=== PATIENT | male | born 1975 | race Caucasian/White ===

== ENCOUNTER 2016-10-24 11:04 | Emergency (ER) | payer SELFPAY ==
[~2016-10-24] VITALS: Ht 193 cm; Wt 92.4 kg
[~2016-10-24 11:04] MED LIST: CEPH500C3 PO
[2016-10-24 11:40] VITALS: BP 139/100; PULSE 96; RESP 20; TEMP 92.4; TEMP 98.1; O2SAT 97
[2016-10-24 12:13] VITALS: TEMP 98
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
[2016-10-24] MEDS ORDERED: TETANUS/DIPHTHERIA TOXOID ADULT 0.5 ML VIAL IM ONE (12:15)
[2016-10-24] MEDS ORDERED: ONDANSETRON HCL 4 MG/2 ML VIAL IV PUSH ONE (12:15)
[2016-10-24] MEDS ORDERED: SODIUM CHLOR 0.9% 1000 ML INJ 1,000 ML IV ONE (12:15)
[2016-10-24 12:41] LABS: POTASSIUM 3.9 MEQ/L (3.5-5.1)
[2016-10-24 12:44] LABS: BICARBONATE 25.1 MEQ/L (21.0-32.0)
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
[2016-10-24 13:06] VITALS: BP 117/68; PULSE 91; RESP 16; O2SAT 99
== END 2016-10-24 13:53 | disposition home or self-care (01) ==
LOC: PHED 11:04
DX: F10.120 Alcohol abuse with intoxication, uncomplicated (principal); Y90.8 Blood alcohol level of 240 mg/100 ml or more; S06.0X9A Concussion with loss of consciousness of unspecified duration, initial encounter; X58.XXXA Exposure to other specified factors, initial encounter
CPT/HCPCS: 70450; 80048; 80320; 96361; 96374; 99284; J2405; J7030

== ENCOUNTER 2017-10-18 02:32 | Emergency (ER) | payer SELFPAY ==
[~2017-10-18] VITALS: Ht 193 cm; Wt 105.0 kg
[2017-10-18 02:40] VITALS: BP 154/98; PULSE 79; RESP 18; TEMP 97.5; O2SAT 97
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
--- NOTE | 2017-10-18 03:36 | RADRPT ---
EXAM DATE/TIME: 10/18/2017 03:15 [facility] COMPARISON: CHEST PA & LAT, July 05, 2016, 0:06. INDICATIONS : Chest and rib pain after fall on side. MEDICAL HISTORY : None. SURGICAL HISTORY : None. ENCOUNTER: Initial ACUITY: 2 weeks PAIN SCORE: 4/10 LOCATION: Left lower chest FINDINGS: The lungs are clear without infiltrate, nodule, or mass. There is no appreciable pleural effusion fo r technique. Heart and mediastinum are unremarkable. No definite pneumothorax is seen for technique. CONCLUSION: No acute cardiopulmonary disease. Lucia Weiner MD on October 18, 2017 at 3:34 Board Certified Radiologist. This report was verified electronically.
[2017-10-18] MEDS ORDERED: NAPR500T2 PO (03:44)
[2017-10-18] MEDS ORDERED: TRAM50TA PO (03:44)
[2017-10-18 03:47] VITALS: BP 153/94
== END 2017-10-18 03:55 | disposition home or self-care (01) ==
LOC: PHED 02:32
DX: S20.212A Contusion of left front wall of thorax, initial encounter (principal); R05 Cough; R06.02 Shortness of breath; F41.9 Anxiety disorder, unspecified; F32.9 Major depressive disorder, single episode, unspecified; W19.XXXA Unspecified fall, initial encounter; Y93.44 Activity, trampolining
CPT/HCPCS: 71020; 99283

== ENCOUNTER 2018-08-14 17:23 | Inpatient (IN) ==
[2018-08-14] MEDS ORDERED: Sod Chloride 0.9% Inj 1,000 ML IV.SIG ONE (18:12)
[2018-08-14] MEDS ORDERED: Morphine Inj 4 MG/ML Vial IV.PUSH ONE (18:13)
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
[2018-08-14 18:56] LABS: Chloride 102 meq/L (98-107); Potassium 3.9 meq/L (3.5-5.1); Sodium 138 meq/L (136-145)
[2018-08-14 19:00] LABS: Albumin 4.3 g/dL (3.4-5.0); Anion Gap 8 meq/L (5-15); Blood Urea Nitrogen 6 mg/dL (7-18); Calcium 9.1 mg/dL (8.5-10.1); Glucose,Random 98 mg/dL (74-106)
[2018-08-14 19:01] LABS: Activated Partial Thrombo Time 26.8 sec (24.3-30.1); INR 0.9 Ratio; Prothrombin Time 9.6 sec (9.8-11.6)
[2018-08-14 19:03] LABS: Alanine Aminotransferase 29 U/L (12-78); Aspartate Aminotransferase 19 U/L (15-37); Baso % (Auto) 0.3 % (0.0-2.0); Eos % (Auto) 0.2 % (0.0-4.0); Glomerular Filtration Rate Greater Than 89 mL/min (>89); Hematocrit 40.8 % (39.0-51.0); Hemoglobin 14.4 gm/dL (13.0-17.0); Lymph # (Auto) 0.8 th/mm3 (1.0-4.8); Lymph % (Auto) 8.6 % (9.0-44.0); Mean Corpuscular HGB Conc 35.3 % (32.0-36.0); Mean Corpuscular Volume 90.6 fL (80.0-100.0); Mean Platelet Volume 7.7 fL (7.0-11.0); Mono # (Auto) 0.6 th/mm3 (0.0-0.9); Mono % (Auto) 6.8 % (0.0-8.0); Neut # (Auto) 7.8 th/mm3 (1.8-7.7); Neut % (Auto) 84.1 % (16.0-70.0); Platelet Count 196 th/mm3 (150-450); Red Blood Count 4.51 mil/mm3 (4.50-5.90); Red Cell Distribution Width 12.9 % (11.6-17.2); White Blood Count 9.2 th/mm3 (4.0-11.0)
[2018-08-14 19:05] LABS: Total Protein 8.5 g/dL (6.4-8.2)
[2018-08-14 19:06] LABS: Alkaline Phosphatase 80 U/L (45-117)
[2018-08-14 19:28] LABS: Platelet Estimate Normal (Normal); Platelet Morphology Normal (Normal); RBC Morphology Normal (Normal)
--- NOTE | 2018-08-14 19:47 | CT ---
EXAM DATE: 08/14/2018 7:11 PM EDT AGE/SEX: 42 years / Male INDICATIONS: Left sided neck swelling. Recent mandible fracture two days ago. CLINICAL DATA: This is the patient's initial encounter. Patient reports that signs and symptoms have been present for 2 days and indicates a pain score of 8/10. MEDICAL/SURGICAL HISTORY: None. None. RADIATION DOSE: 11.63 CTDI (mGy) COMPARISON: [facility], CT FACIAL BONES WO CON, 08/12/2018. . TECHNIQUE: Helical acquisition was performed using a multirow detector CT scanner during the adminis tration of 75 ml Omnipaque 350 (iohexol) nonionic water-soluble contrast as a single exam dose. Usi ng automated exposure control and adjustment of the mA and/or kV according to patient size, radiation dose was kept as low as reasonably achievable to obtain optimal diagnostic quality images. DICOM fo rmat image data is available electronically for review and comparison. FINDINGS: Nasopharynx: The nasopharyngeal airway has a normal configuration. No mucosal thickening or mass is seen. Oropharynx: The intrinsic muscles of the tongue are symmetric. The tonsillar pillars are intact. T he prevertebral soft tissues are not thickened. Retained secretions are seen opacifying the left piri form sinus. Larynx: The supraglottic, glottic, and infraglottic structures are intact. Parapharyngeal: The parapharyngeal space is intact. Salivary Glands: The parotid and submandibular glands are intact. Lymph Nodes: No enlarged or necrotic-appearing nodes. Thyroid: Homogeneous enhancement without evidence of nodule. Bones: Nondisplaced mandibular fractures are seen just to the right of midline near the apex and inv olving the left body. These are unchanged... There is edema involving the masseter muscle and surrounding subcutaneous fat on the left. Small wilmar unt of air is seen associated with the left mandibular fracture. These findings are stable. CONCLUSION: 1. Stable mandibular fractures with associated soft tissue swelling as detailed above. No acute change. Electronically signed by: Eduard Feldman MD 08/14/2018 7:45 PM EDT
[2018-08-14] MEDS ORDERED: Dexamethasone Inj 20 MG/5 ML Vial IV.PUSH ONE (19:50)
[2018-08-14] MEDS ORDERED: Bisacodyl 10 MG Supp RECTAL PRN (21:13)
[2018-08-14] MEDS: Sod Chloride 0.9% Inj 1,000 ML IV.CONT SCH (22:01)
[2018-08-14] MEDS: Morphine Inj 4 MG/ML Vial IV.PUSH PRN (23:07)
[2018-08-15] MEDS: Morphine Inj 4 MG/ML Vial IV.PUSH PRN ×4 (02:54→20:08)
--- NOTE | 2018-08-15 02:57 | P.HPIM ---
History of Present Illness Service: [facility] Primary Care Physician: UNKNOWN Chief Complaint: Jaw pain and swelling History of Present Illness: 42-year-old male with no medical history presented to the emergency department for evaluation of left-sided facial and neck swelling. Patient was seen here 2 days ago in the emergency department and was diagnosed with a mandible fracture in 2 places. He was told to follow up with the facial surgeon in his office but due to insurance authorization he could not get an appointment. He returns today with increased swelling of his left mouth and neck and worsening pain. Patient complains of increased nausea difficulty breathing due to secretions. He denies any chest pain, fevers or chills. Inpatient Certification: I certify that the inpatient services were ordered in accordance with Medicare regulations governing the order. This includes certification that hospital inpatient services are reasonable and necessary and in the case of services not specified as inpatient-only under 42 CFR 419.22(n), that they are appropriately provided as inpatient services in accordance to with the 2-midnight benchmark under 43 CFR 412.3(e) Estimated Total Length of Stay (Days): 2 Plans for Post Hospital Care: Not yet determined Review of Systems All other systems reviewed negative except as stated in [facility]PI [facility] - History History Provided By: Patient - Medical History Medical History: Medical History (Last Reviewed 08/15/18 @ 04:36 by SARAI Guajardo) Patient denies medical problems - Surgical History Surgical History: Surgical History (Last Reviewed 08/15/18 @ 04:36 by SARAI Guajardo) No history of previous surgery - Family History Family History: Family History (Last Updated 08/15/18 @ 04:36 by SARAI Guajardo) Father Lymphoma - Social History I have reviewed the patient's Social History: Yes - Tobacco History Second Hand Smoke Exposure: No Tobacco Use In Past 30 Days: No Smoking Status: Former smoker Tobacco Type: Cigars - Alcohol History How Often Do You Have a Drink Containing Alcohol: Never - Substance Use History Substance History: No History of Abuse - Travel History Recent Travel in the [place] Within the Last 8 Weeks: No Recent Travel Out of the Country Within the Last 8 Weeks: No - Immunization History Tetanus Immunization: <5 Years Medications and Allergies Active Medications: Active Medications Al Hydroxide/Mg Hydroxide (Milk Of Magnesia Liq) 30 ml PO Q12H PRN PRN Reason: Mild Constipation Bisacodyl (Dulcolax Supp) 10 mg RECTAL DAILY PRN PRN Reason: SEVERE CONSITIPATION Dexamethasone Sodium Phosphate (Decadron Inj) 4 mg IV.PUSH Q8H [facility] Sodium Chloride (Ns Inj) 1,000 mls @ 100 mls/hr IV.CONT .Q10H [facility] Last Infusion: 08/14/18 23:00 Dose: 100 mls/hr Lactulose (Lactulose Liq) 30 ml PO DAILY PRN PRN Reason: SEVERE CONSITIPATION Morphine Sulfate (Morphine Inj) 4 mg IV.PUSH Q4H PRN PRN Reason: pain 6-10 Last Admin: 08/14/18 23:07 Dose: 4 mg Ondansetron HCl (Zofran Inj) 4 mg IV.PUSH Q6H PRN PRN Reason: NAUSEA OR VOMITING Senna/Docusate Sodium (Diana-Colace) 1 tab PO BID [facility] Sennosides (Senokot) 17.2 mg PO Q12H PRN PRN Reason: Moderate Constipation Allergies Allergy/AdvReac Type Severity Reaction Status Date / Time No Known Allergies Allergy Verified 08/14/18 17:25 Exam Vital signs: Vital Signs 08/14/18 17:25 08/14/18 17:42 08/14/18 18:54 Temperature 98.9 F Pulse Rate 77 77 86 Respiratory Rate 16 20 Blood Pressure 153/93 H 153/99 H Pulse Oximetry 100 99 99 08/14/18 20:18 08/14/18 22:00 08/15/18 02:03 Temperature Pulse Rate 83 84 84 Respiratory Rate 18 20 18 Blood Pressure 161/97 H 132/77 134/78 Pulse Oximetry 99 96 Intake & Output 08/14/18 08/14/18 08/15/18 06:59 18:59 06:59 Intake Total 1000 / 1000 Balance 1000 / 1000 Weight 91.1 kg Intake: IV 1000 / 1000 NS Inj 1,000 ML @ Wide Open IV. 1000 / 1000 SIG BOLUS ONE Rx#:[id number] Narrative: GENERAL: This is a well-nourished, well-developed patient, in no apparent distress. HEENT: Left mandible and neck swelling CARDIOVASCULAR: Regular rate and rhythm without murmurs, gallops, or rubs. RESPIRATORY: Clear to auscultation. Breath sounds equal bilaterally. No wheezes , rales, or rhonchi. GASTROINTESTINAL: Abdomen soft, non-tender, nondistended. Normal active bowel sounds MUSCULOSKELETAL: Extremities without clubbing, cyanosis, or edema. NEURO: Alert & Oriented x4 to person, place, time, situation. Moves all ext x4 Results - Labs CBC & Chem 7: 08/14/18 18:36 08/14/18 18:36 Labs: Short CBC 08/14/18 Range/Units 18:36 WBC 9.2 (4.0-11.0) th/mm3 Hgb 14.4 (13.0-17.0) gm/dL Hct 40.8 (39.0-51.0) % Plt Count 196 (150-450) th/mm3 BMP 08/14/18 18:36 Sodium 138 Potassium 3.9 Chloride 102 Carbon Dioxide 28.0 BUN 6 L Creatinine 0.89 Calcium 9.1 Liver Function 08/14/18 Range/Units 18:36 Total Bilirubin 0.5 (0.2-1.0) mg/dL AST 19 (15-37) U/L ALT 29 (12-78) U/L Alkaline Phosphatase 80 (45-117) U/L Albumin 4.3 (3.4-5.0) g/dL - Imaging Impressions Soft Tissue Neck CT 08/14/18 18:12 CONCLUSION: 1. Stable mandibular fractures with associated soft tissue swelling as detailed above. No acute change. Caprini VTE Risk Assessment Caprini VTE Risk Assessment: No/Low Risk (score <= 1) Caprini Risk Assessment Model: Point Value = 1 Point Value = 2 Point Value = 3 Point Value = 5 Age 41-60 Minor surgery BMI > 25 kg/m2 Swollen legs Varicose veins or History of unexplained or recurrent spontaneous Oral contraceptives or hormone replacement Sepsis (< 1 month) Serious lung disease, including pneumonia (< 1 month) Abnormal pulmonary function Acute myocardial infarction Congestive heart failure (< 1 month) History of inflammatory bowel disease Medical patient at bed rest Age 61-74 Arthroscopic surgery Major open surgery (> 45 min) Laparoscopic surgery (> 45 min) Malignancy Confined to bed (> 72 hours) Immobilizing plaster cast Central venous access Age >= 75 History of VTE Family history of VTE Factor V Leiden Prothrombin [id number] Lupus anticoagulant Anticardiolipin antibodies Elevated serum homocysteine Heparin-induced thrombocytopenia Other congenital or acquired thrombophilia Stroke (< 1 month) Elective arthroplasty Hip, pelvis, or leg fracture Acute spinal cord injury (< 1 month) Prophylaxis Regimen: Total Risk Factor Score Risk Level Prophylaxis Regimen 0-1 Low Early ambulation 2 Moderate Order ONE of the following: *Sequential Compression Device (SCD) *Heparin 5000 units SQ BID 3-4 Higher Order ONE of the following medications: *Heparin 5000 units SQ TID *Enoxaparin/Lovenox 40 mg SQ daily (WT < 150 kg, CrCl > 30 mL/min) *Enoxaparin/Lovenox 30 mg SQ daily (WT < 150 kg, CrCl > 10-29 mL/min) *Enoxaparin/Lovenox 30 mg SQ BID (WT < 150 kg, CrCl > 30 mL/min) AND/OR *Sequential Compression Device (SCD) 5 or more Highest Order ONE of the following medications: *Heparin 5000 units SQ TID (Preferred with Epidurals) *Enoxaparin/Lovenox 40 mg SQ daily (WT < 150 kg, CrCl > 30 mL/min) *Enoxaparin/Lovenox 30 mg SQ daily (WT < 150 kg, CrCl > 10-29 mL/min) *Enoxaparin/Lovenox 30 mg SQ BID (WT < 150 kg, CrCl > 30 mL/min) AND *Sequential Compression Device (SCD) Assessment and Plan - Plan Mandible fracture -NPO, IVF -Consult maxillofacial surgery for evaluation -Pain management with IV morphine -Decadron IV DVT prophylaxis: SCDs Discussed Condition With: Patient and RN
[2018-08-15 07:07] LABS: Baso % (Auto) 0.1 % (0.0-2.0); Hematocrit 38.1 % (39.0-51.0); Lymph # (Auto) 0.5 th/mm3 (1.0-4.8); Lymph % (Auto) 4.7 % (9.0-44.0); Mean Corpuscular HGB Conc 34.1 % (32.0-36.0); Mean Corpuscular Hemoglobin 31.9 pg (27.0-34.0); Mean Corpuscular Volume 93.7 fL (80.0-100.0); Mono # (Auto) 0.3 th/mm3 (0.0-0.9); Mono % (Auto) 3.2 % (0.0-8.0); Neut # (Auto) 8.9 th/mm3 (1.8-7.7); Platelet Count 167 th/mm3 (150-450); Red Blood Count 4.07 mil/mm3 (4.50-5.90); Red Cell Distribution Width 13.1 % (11.6-17.2); White Blood Count 9.6 th/mm3 (4.0-11.0)
[2018-08-15 07:35] LABS: Anion Gap 7 meq/L (5-15); Blood Urea Nitrogen 6 mg/dL (7-18); Calcium 8.5 mg/dL (8.5-10.1); Carbon Dioxide 25.8 meq/L (21.0-32.0); Chloride 103 meq/L (98-107); Glomerular Filtration Rate Greater Than 89 mL/min (>89); Glucose,Random 129 mg/dL (74-106); Potassium 4.2 meq/L (3.5-5.1); Sodium 136 meq/L (136-145)
[2018-08-15] MEDS: Sod Chloride 0.9% Inj 1,000 ML IV.CONT SCH ×2 (10:25→19:55)
[2018-08-15] MEDS: Senna/Docusate Sodium 8.6/50 MG Tablet PO SCH ×2 (10:26→21:00)
--- NOTE | 2018-08-15 11:19 | P.PN ---
Subjective Interval history: This is a pleasant 42 y/o male who came to ER with left sided facial and neck swelling, Patient was seen here 2 days ago in the emergency department and was diagnosed with a mandible fracture in 2 places. He was told to follow up with the facial surgeon in his office but due to insurance authorization he could not get an appointment. He returns today with increased swelling of his left mouth and neck and worsening pain. Patient complains of increased nausea difficulty breathing due to secretions. He denies any chest pain, fevers or chills. 08/15: Seen in his bedroom he has no nausea, vomit or diarrhea, will have procedure for 08/17/18 started full liquid diet and will be NPO tomorrow midnight. Physical Exam Vital signs: Vital Signs 08/14/18 17:25 08/14/18 17:42 08/14/18 18:54 Temperature 98.9 F Pulse Rate 77 77 86 Respiratory Rate 16 20 Blood Pressure 153/93 H 153/99 H Pulse Oximetry 100 99 99 08/14/18 20:18 08/14/18 22:00 08/15/18 02:03 Temperature Pulse Rate 83 84 84 Respiratory Rate 18 20 18 Blood Pressure 161/97 H 132/77 134/78 Pulse Oximetry 99 96 08/15/18 02:30 08/15/18 03:30 08/15/18 05:00 Temperature 98.1 F Pulse Rate 66 Respiratory Rate 18 Blood Pressure 123/66 Pulse Oximetry 98 98 97 08/15/18 08:00 Temperature 98.3 F Pulse Rate 92 H Respiratory Rate 17 Blood Pressure 142/78 H Pulse Oximetry 96 Intake & Output 08/14/18 08/15/18 08/15/18 18:59 06:59 18:59 Intake Total 1000 / 1000 1000 / 1000 Balance 1000 / 1000 1000 / 1000 Weight 91.1 kg 91 kg Intake: IV 1000 / 1000 1000 / 1000 NS Inj 1,000 ML @ 100 mls/hr IV 1000 / 1000 .CONT .Q10H PER Rx#:[id number] NS Inj 1,000 ML @ Wide Open IV. 1000 / 1000 SIG BOLUS ONE Rx#:[id number] Oral 0 / 0 Other: # Voids 1 # Bowel Movements 0 Weight On Admission 91 kg Narrative: GENERAL: This is a well-nourished, well-developed patient, in no apparent distress. HEENT: Left mandible and neck swelling CARDIOVASCULAR: Regular rate and rhythm without murmurs, gallops, or rubs. RESPIRATORY: Clear to auscultation. Breath sounds equal bilaterally. No wheezes , rales, or rhonchi. GASTROINTESTINAL: Abdomen soft, non-tender, nondistended. Normal active bowel sounds MUSCULOSKELETAL: Extremities without clubbing, cyanosis, or edema. NEURO: Alert & Oriented x4 to person, place, time, situation. Moves all ext x4 Results - Labs CBC & Chem 7: 08/15/18 05:27 08/15/18 05:27 Laboratory Results - last 24 hr 08/14/18 08/14/18 08/14/18 18:36 18:36 18:36 CBC w Diff Slide review pending WBC 9.2 RBC 4.51 Hgb 14.4 Hct 40.8 MCV 90.6 MCH 32.0 MCHC 35.3 RDW 12.9 Plt Count 196 MPV 7.7 Neut % (Auto) 84.1 H Lymph % (Auto) 8.6 L [place] % (Auto) 6.8 Eos % (Auto) 0.2 Baso % (Auto) 0.3 Neut # (Auto) 7.8 H Lymph # (Auto) 0.8 L [place] # (Auto) 0.6 Eos # (Auto) 0.0 Baso # (Auto) 0.0 WBC Differential . Diff Scan Auto diff confirmed Differential Comment . Platelet Estimate Normal Platelet Morphology Normal RBC Morphology Normal PT 9.6 L INR 0.9 APTT 26.8 Sodium 138 Potassium 3.9 Chloride 102 Carbon Dioxide 28.0 Anion Gap 8 BUN 6 L Creatinine 0.89 Estimated GFR Greater than 89 Random Glucose 98 Lactic Acid Calcium 9.1 Total Bilirubin 0.5 AST 19 ALT 29 Alkaline Phosphatase 80 Total Protein 8.5 H Albumin 4.3 08/14/18 08/15/18 08/15/18 18:36 05:27 05:27 CBC w Diff WBC 9.6 RBC 4.07 L Hgb 13.0 Hct 38.1 L MCV 93.7 MCH 31.9 MCHC 34.1 RDW 13.1 Plt Count 167 MPV 8.0 Neut % (Auto) 92.0 H Lymph % (Auto) 4.7 L [place] % (Auto) 3.2 Eos % (Auto) 0.0 Baso % (Auto) 0.1 Neut # (Auto) 8.9 H Lymph # (Auto) 0.5 L [place] # (Auto) 0.3 Eos # (Auto) 0.0 Baso # (Auto) 0.0 WBC Differential . Diff Scan Differential Comment Auto diff final Platelet Estimate Platelet Morphology RBC Morphology PT INR APTT Sodium 136 Potassium 4.2 Chloride 103 Carbon Dioxide 25.8 Anion Gap 7 BUN 6 L Creatinine 0.88 Estimated GFR Greater than 89 Random Glucose 129 H Lactic Acid 1.2 Calcium 8.5 Total Bilirubin AST ALT Alkaline Phosphatase Total Protein Albumin - Imaging Impressions Soft Tissue Neck CT 08/14/18 18:12 CONCLUSION: 1. Stable mandibular fractures with associated soft tissue swelling as detailed above. No acute change. - Procedures None Assessment and Plan - Plan Mandible fracture -NPO, IVF -Consult maxillofacial surgery performed appreciated procedure scheduled for -Pain management with IV morphine -Decadron IV DVT prophylaxis: SCDs Code Status: Full code. Discussed Condition With: patient and nurse Miss Montague Discharge Planning: Once cleared by specialist.
--- NOTE | 2018-08-15 19:57 | P.CON ---
History of Present Illness Service: Plastic surgery Consult date: 08/15/18 Primary Care Provider: UNKNOWN Chief Complaint: Mandibular fracture History of Present Illness: History obtained from patient and chart 42-year-old male with no medical history presented to the emergency department for evaluation of left-sided facial and neck swelling. Patient was seen here 2 days ago in the emergency department and was diagnosed with a mandible fracture. He was told to follow up with the facial surgeon in his office but due to insurance authorization he could not get an appointment. He returns today with increased swelling of his left mouth and neck and worsening pain. Patient complains of increased nausea difficulty breathing due to secretions. He denies any chest pain, fevers or chills. Patient endorses bilateral jaw pain. He also endorses left facial numbness and tingling since the incident. Review of Systems All other systems reviewed negative except as stated in HPI [facility] - History History Provided By: Patient - Medical History Medical History: Medical History (Last Reviewed 08/15/18 @ 04:36 by SARAI Guajardo) Patient denies medical problems - Surgical History Surgical History: Surgical History (Last Reviewed 08/15/18 @ 04:36 by SARAI Guajardo) No history of previous surgery - Family History Family History: Family History (Last Updated 08/15/18 @ 04:36 by SARAI Guajardo) Father Lymphoma - Social History I have reviewed the patient's Social History: Yes - Tobacco History Second Hand Smoke Exposure: No Tobacco Use In Past 30 Days: No Smoking Status: Former smoker Tobacco Type: Cigars - Alcohol History How Often Do You Have a Drink Containing Alcohol: Never - Substance Use History Substance History: No History of Abuse - Travel History Recent Travel in the [place] Within the Last 8 Weeks: No Recent Travel Out of the Country Within the Last 8 Weeks: No - Immunization History Tetanus Immunization: <5 Years Medication list reviewed [facility] - History History Provided By: Patient - Medical History Medical History: Medical History (Last Reviewed 08/15/18 @ 04:36 by SARAI Guajardo) Patient denies medical problems - Surgical History Surgical History: Surgical History (Last Reviewed 08/15/18 @ 04:36 by SARAI Guajarod) No history of previous surgery - Family History Family History: Family History (Last Updated 08/15/18 @ 04:36 by SARAI Guajardo) Father Lymphoma - Tobacco History Second Hand Smoke Exposure: Yes Tobacco Use In Past 30 Days: No Smoking Status: Former smoker Tobacco Type: Cigarettes - Alcohol History How Often Do You Have a Drink Containing Alcohol: Never - Substance Use History Substance History: No History of Abuse - Travel History Recent Travel in the [facility] Within the Last 8 Weeks: No Recent Travel Out of the Country Within the Last 8 Weeks: No - Immunization History Tetanus Immunization: <5 Years Hx Influenza Vaccine This Season: No Medications and Allergies Active Medications: Active Medications Al Hydroxide/Mg Hydroxide (Milk Of Magnesia Liq) 30 ml PO Q12H PRN PRN Reason: Mild Constipation Bisacodyl (Dulcolax Supp) 10 mg RECTAL DAILY PRN PRN Reason: SEVERE CONSITIPATION Dexamethasone Sodium Phosphate (Decadron Inj) 4 mg IV.PUSH Q8H [facility] Last Admin: 08/15/18 11:01 Dose: 4 mg Sodium Chloride (Ns Inj) 1,000 mls @ 100 mls/hr IV.CONT .Q10H [facility] Last Admin: 08/15/18 10:25 Dose: 100 mls/hr Lactulose (Lactulose Liq) 30 ml PO DAILY PRN PRN Reason: SEVERE CONSITIPATION Morphine Sulfate (Morphine Inj) 4 mg IV.PUSH Q4H PRN PRN Reason: pain 6-10 Last Admin: 08/15/18 15:14 Dose: 4 mg Ondansetron HCl (Zofran Inj) 4 mg IV.PUSH Q6H PRN PRN Reason: NAUSEA OR VOMITING Last Admin: 08/15/18 10:57 Dose: 4 mg Senna/Docusate Sodium (Diana-Colace) 1 tab PO BID [facility] Last Admin: 08/15/18 10:26 Dose: 1 tab Sennosides (Senokot) 17.2 mg PO Q12H PRN PRN Reason: Moderate Constipation Allergies Allergy/AdvReac Type Severity Reaction Status Date / Time No Known Allergies Allergy Verified 08/14/18 17:25 Physical Exam Vital signs: Vital Signs 08/14/18 20:18 08/14/18 22:00 08/15/18 02:03 Temperature Pulse Rate 83 84 84 Respiratory Rate 18 20 18 Blood Pressure 161/97 H 132/77 134/78 Pulse Oximetry 99 96 08/15/18 02:30 08/15/18 03:30 08/15/18 05:00 Temperature 98.1 F Pulse Rate 66 Respiratory Rate 18 Blood Pressure 123/66 Pulse Oximetry 98 98 97 08/15/18 08:00 08/15/18 12:00 08/15/18 16:00 Temperature 98.3 F 98.0 F 98.2 F Pulse Rate 92 H 60 65 Respiratory Rate 17 17 17 Blood Pressure 142/78 H 126/59 L 146/81 H Pulse Oximetry 96 97 97 Intake & Output 08/15/18 08/15/18 08/16/18 06:59 18:59 06:59 Intake Total 1000 / 1000 1480 / 1480 Output Total 650 / 650 Balance 1000 / 1000 830 / 830 Weight 91 kg Intake: IV 1000 / 1000 1000 / 1000 NS Inj 1,000 ML @ 100 mls/hr IV 1000 / 1000 .CONT .Q10H PER Rx#:[id number] NS Inj 1,000 ML @ Wide Open IV. 1000 / 1000 SIG BOLUS ONE Rx#:[id number] Oral 0 / 0 480 / 480 Output: Urine 650 / 650 Other: # Voids 1 Date of Last Bowel Movement 08/14/18 # Bowel Movements 0 0 Weight On Admission 91 kg Narrative: No apparent anxiety moist mucous membranes PERRLA skin without rash respirations nonlabored moves all 4 extremities to command digits warm well perfused Cranial nerves intact by exam Left V1 to V3 numb subjectively Bilateral mandibular pain Moderate edema Assessment and Plan - Assessment (1) Mandible fracture Code(s): S02.609A - Fracture of mandible, unspecified, initial encounter for closed fracture Status: Acute - Plan 42-year-old male who presents with left ankle and right mandibular body fractures Risk benefits alternative treatments discussed All questions answered and the patient expressed understanding Patient elected to assume the risks of maxillomandibular fixation of mandibular fractures Informed consent obtained Patient currently scheduled for this Monday (1) Mandible fracture Qualifiers: Encounter type: initial encounter Fracture type: closed Mandible location: other site Qualified Code(s): S02.69XA - Fracture of mandible of other specified site, initial encounter for closed fracture
[2018-08-16] MEDS: Morphine Inj 4 MG/ML Vial IV.PUSH PRN ×6 (00:15→22:15)
[2018-08-16] MEDS: Sod Chloride 0.9% Inj 1,000 ML IV.CONT SCH ×2 (08:34→13:10)
[2018-08-16] MEDS: Senna/Docusate Sodium 8.6/50 MG Tablet PO SCH ×2 (08:40→21:59)
--- NOTE | 2018-08-16 14:57 | P.PN ---
Subjective Interval history: Follow-up for left mandibular fracture. Patient is currently resting in bed. Complains of pain and not able to talk clearly. He is a scheduled for surgery tomorrow 08/17/2018. Physical Exam Vital signs: Vital Signs 08/15/18 16:00 08/15/18 20:39 08/16/18 00:00 Temperature 98.2 F 98.2 F 98.2 F Pulse Rate 65 62 68 Respiratory Rate 17 17 18 Blood Pressure 146/81 H 143/74 H 133/73 Pulse Oximetry 97 96 94 L 08/16/18 05:00 08/16/18 08:00 08/16/18 12:00 Temperature 98.1 F 98.5 F 98.4 F Pulse Rate 60 60 80 Respiratory Rate 18 18 20 Blood Pressure 129/74 137/91 H 137/82 Pulse Oximetry 95 97 96 Intake & Output 08/15/18 08/16/18 08/16/18 18:59 06:59 18:59 Intake Total 1480 / 1480 480 / 480 1000 / 1000 Output Total 650 / 650 Balance 830 / 830 480 / 480 1000 / 1000 Weight 91 kg Intake: IV 1000 / 1000 1000 / 1000 NS Inj 1,000 ML @ 100 mls/hr IV 1000 / 1000 1000 / 1000 .CONT .Q10H PER Rx#:[id number] Oral 480 / 480 480 / 480 Output: Urine 650 / 650 Other: # Voids 3 Date of Last Bowel Movement 08/14/18 # Bowel Movements 0 0 Narrative: GENERAL: Alert, NAD. SKIN: Warm and dry. HEAD: Normocephalic. Left mandibular area swelling and pain. EYES: No scleral icterus. No injection or drainage. NECK: Supple, trachea midline. No JVD or lymphadenopathy. CARDIOVASCULAR: Regular rate and rhythm without murmurs, gallops, or rubs. RESPIRATORY: Breath sounds equal bilaterally. No accessory muscle use. GASTROINTESTINAL: Abdomen soft, non-tender, nondistended. MUSCULOSKELETAL: No cyanosis, or edema. BACK: Nontender without obvious deformity. No CVA tenderness. Results - Labs CBC & Chem 7: 08/15/18 05:27 08/15/18 05:27 - Imaging Soft Tissue Neck CT 08/14/18 18:12 CONCLUSION: 1. Stable mandibular fractures with associated soft tissue swelling as detailed above. No acute change. - Procedures None Assessment and Plan - Plan Mr. Clinton is a 42-year-old male with no medical history presented to the emergency department for evaluation of left-sided facial and neck swelling. He was diagnosed with left mandibular fracture two days prior to this admission. Plastic surgery consulted. Left mandibular fracture Neck swelling - Plastic surgery following. Surgery on 08/17/2018. - Patient is on Decadron 4mg IV q8hrs due to neck swelling. - Morphine IV for pain. Full code. Ambulation.
[2018-08-17] MEDS: Morphine Inj 4 MG/ML Vial IV.PUSH PRN ×4 (02:17→19:49)
[2018-08-17] MEDS: Sod Chloride 0.9% Inj 1,000 ML IV.CONT SCH (08:19)
[2018-08-17] MEDS ORDERED: Metoprolol Tartrate 25 MG Tablet PO ONE (09:14)
[2018-08-17] MEDS ORDERED: Chlorhexidine Gluconate 2% 1 Pack (2 Cloths) TOPICAL ONE (09:14)
[2018-08-17] MEDS ORDERED: Chlorhexidine Gluconate 2% 1 Pack (2 Cloths) TOPICAL SCH (09:53)
[2018-08-17] MEDS ORDERED: Metoprolol Tartrate 25 MG Tablet PO SCH (09:53)
[2018-08-17] MEDS ORDERED: Sodium Chlor 0.9% Inj 500 ML IV.SIG SCH ×2 (10:00)
--- NOTE | 2018-08-17 10:15 | P.PN ---
Subjective Interval history: Attempted to see patient around 10:15AM. He is in surgery. After patient came back from surgery I evaluated patient. Postsurgery, he is doing well. No acute concerns other than persistent pain. Physical Exam Vital signs: Vital Signs 08/16/18 12:00 08/16/18 16:18 08/16/18 20:00 Temperature 98.4 F 98.4 F 98.0 F Pulse Rate 80 66 74 Respiratory Rate 20 18 20 Blood Pressure 137/82 144/69 H 141/102 H Pulse Oximetry 96 96 97 08/17/18 00:00 08/17/18 04:00 08/17/18 08:00 Temperature 98.7 F 97.5 F L 97.6 F Pulse Rate 66 48 L 51 L Respiratory Rate 17 20 20 Blood Pressure 135/65 148/92 H 164/91 H Pulse Oximetry 96 99 97 Intake & Output 08/16/18 08/17/18 08/17/18 18:59 06:59 18:59 Intake Total 1720 / 1720 1480 / 1480 Output Total 800 / 800 Balance 920 / 920 1480 / 1480 Weight 91.3 kg Intake: IV 1000 / 1000 1000 / 1000 NS Inj 1,000 ML @ 100 mls/hr IV 1000 / 1000 1000 / 1000 .CONT .Q10H PER Rx#:[id number] Oral 720 / 720 480 / 480 Output: Urine 800 / 800 Other: # Voids 2 3 Date of Last Bowel Movement 08/14/18 Narrative: GENERAL: Alert, NAD. SKIN: Warm and dry. HEAD: Normocephalic. Left mandibular area swelling and pain. s/p surgery. EYES: No scleral icterus. No injection or drainage. NECK: Supple, trachea midline. No JVD or lymphadenopathy. CARDIOVASCULAR: Regular rate and rhythm without murmurs, gallops, or rubs. RESPIRATORY: Breath sounds equal bilaterally. No accessory muscle use. GASTROINTESTINAL: Abdomen soft, non-tender, nondistended. MUSCULOSKELETAL: No cyanosis, or edema. BACK: Nontender without obvious deformity. No CVA tenderness. Results - Labs CBC & Chem 7: 08/15/18 05:27 08/15/18 05:27 - Procedures None Assessment and Plan - Plan Mr. Clinton is a 42-year-old male with no medical history presented to the emergency department for evaluation of left-sided facial and neck swelling. He was diagnosed with left mandibular fracture two days prior to this admission. Plastic surgery consulted. Left mandibular fracture Neck swelling - Plastic surgery following. Surgery on 08/17/2018. - Patient is on Decadron 4mg IV q8hrs due to neck swelling. - Continue liquid [place], IV morphine as needed for pain management. - Liquid [place] and Peridex upon discharge. - Continue full liquid diet. Full code. Ambulation. Probable discharge in the AM.
[2018-08-17] MEDS ORDERED: Bupivacaine/Epinephrine Inj 0.25% 50 ML Vial ONE (10:20)
[2018-08-17] MEDS ORDERED: Chlorhexidine Gluconate 0.12% Liq 15 ML UDC ONE (10:22)
[2018-08-17] MEDS ORDERED: Succinylcholine Inj 100 MG/5 ML Syringe IV.PUSH ONE (10:38)
[2018-08-17] MEDS ORDERED: Labetalol HCl Inj 100 MG/20 ML Vial IV.CONT ONE (10:38)
[2018-08-17] MEDS ORDERED: Esmolol Bolus Inj 100 MG/10 ML Vial IV.PUSH ONE (10:38)
[2018-08-17] MEDS ORDERED: ceFAZolin 2 GM Premix Inj 2 GM/50 ML PIGGYBACK IV.SIG ONE (10:59)
[2018-08-17] MEDS ORDERED: HYDROmorphone PF Inj 2 MG/ML Vial ONE (12:08)
[2018-08-17] MEDS ORDERED: fentaNYL Citrate Inj 100 MCG/2 ML Ampul ONE (12:28)
[2018-08-17] MEDS ORDERED: *Meperidine Inj 25 MG/ML Vial PERIprocedural Use ONLY ONE (12:29)
[2018-08-17] MEDS ORDERED: *Labetalol HCl Inj 100 MG/20 ML Vial PERIprocedural Use ONLY IV.PUSH ONE (12:29)
[2018-08-17] MEDS ORDERED: *morphine SULFATE 10 MG/ML PERIprocedure ONLY ONE (12:41)
[2018-08-17] MEDS ORDERED: *Enalaprilat Inj 1.25 MG/ML Vial IV.PUSH ONE (13:02)
[2018-08-17] MEDS ORDERED: *HYDROmorphone PF Inj 1 MG/ML Ampul PERIprocedural Use ONLY ONE (13:07)
[2018-08-17] MEDS ORDERED: hydrALAZINE HCl Inj 20 MG/ML Vial ONE (13:32)
[2018-08-17] MEDS ORDERED: hydrALAZINE HCl Inj 20 MG/ML Vial IV.PUSH ONE (14:15)
[2018-08-17] MEDS ORDERED: hydrALAZINE HCl Inj 20 MG/ML Vial IV.PUSH PRN (14:18)
[2018-08-17] MEDS: Senna/Docusate Sodium 8.6/50 MG Tablet PO SCH (15:48)
[2018-08-17] MEDS: Chlorhexidine Gluconate 0.12% Liq 15 ML UDC SWISH-SPIT SCH (15:52)
--- NOTE | 2018-08-17 18:00 | P.OP ---
- Preoperative Diagnosis (1) Mandible fracture - Postoperative Diagnosis (1) Mandible fracture Date of procedure: 08/17/18 Procedure: Maxillomandibular fixation (13999) Anesthesia: GETA Surgeon: Moy Pena MD Operation and Findings: 42-year-old male who presented with a left mandibular angle fracture and a right parasymphyseal fracture, both minimally displaced.. Risk benefits alternative treatments discussed. All questions answered and the patient expressed understanding. Patient elected to assume the risks of maxillomandibular fixation of the above fractures. Informed consent obtained. The surgical site was marked in the preoperative holding bay. The patient was given antibiotics on-call to the operating room. The patient was taken to the operating room and all pressure points were padded. A surgical timeout was performed. After the smooth induction of general anesthesia, the surgical site was prepped and draped in the usual sterile fashion. As the fracture was minimally displaced, the patient was placed into hybrid MMF with dental elastics. All needle sponge and instrument counts were correct x2. The patient was awoken from anesthesia and arrived stable doing well to the PACU.
[2018-08-17] MEDS: Acetaminophen-HYDROcodone 325/7.5 Liq 15 ML UDC NG/OG PRN (21:58)
[2018-08-18] MEDS: Chlorhexidine Gluconate 0.12% Liq 15 ML UDC SWISH-SPIT SCH ×2 (00:23→08:14)
[2018-08-18] MEDS: Senna/Docusate Sodium 8.6/50 MG Tablet PO SCH ×2 (00:24→08:13)
[2018-08-18] MEDS: Morphine Inj 4 MG/ML Vial IV.PUSH PRN ×3 (00:29→08:13)
[2018-08-18] MEDS: Acetaminophen-HYDROcodone 325/7.5 Liq 15 ML UDC NG/OG PRN (06:56)
[2018-08-18] MEDS: Sod Chloride 0.9% Inj 1,000 ML IV.CONT SCH (08:15)
[2018-08-18 08:28] VITALS: BP 168/110; PULSE 75; RESP 19; TEMP 99.2; O2SAT 95
--- NOTE | 2018-08-18 08:55 | P.DS ---
Date of admission: 08/14/18 21:13 Primary care physician: UNKNOWN Attending physician on discharge: Joel Covarrubias Anticipated date of discharge: 08/18/18 Brief History from admission: 42-year-old male with no medical history presented to the emergency department for evaluation of left-sided facial and neck swelling. Patient was seen here 2 days ago in the emergency department and was diagnosed with a mandible fracture in 2 places. He was told to follow up with the facial surgeon in his office but due to insurance authorization he could not get an appointment. He returns today with increased swelling of his left mouth and neck and worsening pain. Patient complains of increased nausea difficulty breathing due to secretions. He denies any chest pain, fevers or chills. Patient update on day of discharge: Patient is currently doing well. Denies any chest pain, shortness of breath, fever or chills. He is tolerating liquid diet well. DS: Medications - Discharge Medications Prescriptions: chlorhexidine gluconate [Peridex] 15 ml MUCOUS MEMBRANE TID 15 Days #675 ml hydrocodone-acetaminophen 7.5 ml PO Q6H PRN 10 Days #600 ml PRN Reason: Pain DS: Summary Hospital Course: Mr. Clinton is a 42-year-old male with no medical history presented to the emergency department for evaluation of left-sided facial and neck swelling. He was diagnosed with left mandibular fracture two days prior to this admission. Plastic surgery consulted. Left mandibular fracture Neck swelling - Plastic surgery following. Surgery on 08/17/2018. - Patient is on Decadron 4mg IV q8hrs due to neck swelling. - Continue liquid [place], IV morphine as needed for pain management. - Liquid [place] and Peridex upon discharge. - Continue full liquid diet. I discussed with plastic surgery on 08/17/2018. Plastic surgery recommended Peridex and liquid [place]. Patient is highly encouraged to follow-up with plastic surgery in the outpatient setting upon discharge. He is given a pair of scissors in case he has nausea vomiting and he needs to cut the rubber bands. Based on my discussion with plastic surgery as well as since patient just had facial surgery, will provide liquid [place] for 10 days. I have checked [employer] database. - Time Spent with Patient Total time spent providing and/or coordinating discharge services: Less than 30 minutes - Quality: VTE Deep Vein Thrombosis/Pulmonary Embolism Present on Admission: No Exam Vital signs: Vital Signs 08/17/18 10:30 08/17/18 12:17 08/17/18 12:30 Temperature 97.3 F L Pulse Rate 86 86 Respiratory Rate 16 18 Blood Pressure 101/63 184/102 H 202/125 H Pulse Oximetry 96 97 08/17/18 12:45 08/17/18 13:00 08/17/18 13:15 Temperature Pulse Rate 66 70 80 Respiratory Rate 18 18 18 Blood Pressure 194/104 H 185/109 H 187/110 H Pulse Oximetry 96 96 94 L 08/17/18 13:30 08/17/18 13:45 08/17/18 14:00 Temperature Pulse Rate 78 82 82 Respiratory Rate 18 18 18 Blood Pressure 182/110 H 174/106 H 159/101 H Pulse Oximetry 95 97 97 08/17/18 14:15 08/17/18 14:30 08/17/18 14:45 Temperature Pulse Rate 82 76 82 Respiratory Rate 18 18 18 Blood Pressure 157/97 H 156/96 H 157/95 H Pulse Oximetry 97 96 97 08/17/18 16:00 08/17/18 20:00 08/18/18 00:00 Temperature 97.7 F 97.8 F 98.2 F Pulse Rate 80 68 80 Respiratory Rate 21 17 17 Blood Pressure 174/100 H 161/89 H 151/86 H Pulse Oximetry 21 L 97 97 08/18/18 04:00 08/18/18 08:00 Temperature 97.9 F 99.2 F Pulse Rate 77 75 Respiratory Rate 17 19 Blood Pressure 147/88 H 168/110 H Pulse Oximetry 98 95 Intake & Output 08/17/18 08/18/18 08/18/18 18:59 06:59 18:59 Intake Total 2200 / 2200 1240 / 1240 Output Total 1502 / 1502 Balance 698 / 698 1240 / 1240 Weight 96.6 kg Intake: IV 1000 / 1000 NS Inj 1,000 ML @ 100 mls/hr IV 1000 / 1000 .CONT .Q10H PER Rx#:[id number] Oral 240 / 240 Anesthesia Amount 1800 / 1800 Other 400 / 400 Output: Urine 1500 / 1500 Estimated Blood Loss 2 / 2 Other: Other Intake Source Saline Solution # Voids 5 Date of Last Bowel Movement 08/14/18 08/16/18 Results Procedures completed during hospitalization: Maxillomandibular fixation 08/17/2018 - Impressions ITS Impressions Soft Tissue Neck CT 08/14/18 18:12 CONCLUSION: 1. Stable mandibular fractures with associated soft tissue swelling as detailed above. No acute change. Discharge Plan - Discharge Disposition Patient Disposition: 01 Discharge Home - Discharge Condition Condition: Good - Discharge Order Discharge Orders: Discharge Order (Routine); Ordered 08/18/18 Ordered By: Joel Covarrubias - Discharge Details Anticipated Discharge Date: 08/18/18 - Physicians Team Primary Care Provider: UNKNOWN, Attending Provider: Joel Covarrubias Other Providers: Moy Pena MD
== END 2018-08-18 11:03 | disposition home or self-care (01) ==
LOC: PHEFT 17:23 → PHEDA 21:13 → N06 08-15 02:27
PROVIDERS: ADMIT Hospitalist; ATTEND Hospitalist
PROC: ORIFMAN (2018-08-17 10:38)